=== PATIENT | female | born 1980 | race Caucasian/White ===

== ENCOUNTER 2016-10-08 16:13 | Emergency (ER) | payer OTHER ==
[2016-10-08 16:25] VITALS: BP 127/87; PULSE 79; RESP 18; TEMP 97.6
[2016-10-08] MEDS ORDERED: IBUPROFEN 800 MG TAB PO STA (16:37)
--- NOTE | 2016-10-08 16:54 | XR ---
EXAMINATION TYPE: XR wrist complete LT DATE OF EXAM: 10/08/2016 4:50 PM CLINICAL HISTORY: pain TECHNIQUE: Frontal, lateral and oblique images of the left wrist are obtained. COMPARISON: None. FINDINGS: There is no acute fracture/dislocation evident. The joint spaces appear within normal combs its. The overlying soft tissue appears unremarkable. IMPRESSION: There is no acute fracture or dislocation seen. ICD 10 NO FRACTURE, INITIAL EVALUATION
--- NOTE | 2016-10-08 16:55 | XR ---
EXAMINATION TYPE: XR forearm LT DATE OF EXAM: 10/08/2016 4:52 PM CLINICAL HISTORY: pain TECHNIQUE: Frontal and lateral images of the left forearm are obtained. COMPARISON: None. FINDINGS: There is no acute fracture/dislocation evident. Fixation plate distal ulna is in place. Th e joint spaces appear within normal limits. The overlying soft tissue appears unremarkable. IMPRESSION: There is no acute fracture or dislocation. ICD 10 NO FRACTURE, INITIAL EVALUATION
--- NOTE | 2016-10-08 17:10 | ED ---
Lower Extremity Injury HPI - General Chief Complaint: Extremity Injury, Upper Stated Complaint: Left Wrist Injury Time Seen by Provider: 10/08/16 16:27 Source: patient Mode of arrival: ambulatory Limitations: no limitations - Related Data Home Medications Medication Instructions Recorded Confirmed D-Methorphan/PE/Acetaminophen 1 tab PO Q6H PRN 10/08/16 10/08/16 [Tylenol Cold Multi-Symp Caplet] Multivitamins, Thera [Multivitamin] 1 tab PO DAILY 10/08/16 10/08/16 Allergies Allergy/AdvReac Type Severity Reaction Status Date / Time No Known Allergies Allergy Verified 10/08/16 16:31 Review of Systems ROS Statement: Those systems with pertinent positive or pertinent negative responses have been documented in the HPI. ROS Other: All systems not noted in ROS Statement are negative. Past Medical History Past Medical History: No Reported History History of Any Multi-Drug Resistant Organisms: None Reported Past Surgical History: Orthopedic Surgery Additional Past Surgical History / Comment(s): ORIF of the left arm Past Psychological History: No Psychological Hx Reported Smoking Status: Never smoker Past Alcohol Use History: None Reported Past Drug Use History: None Reported General Exam Limitations: no limitations Course Vital Signs 10/08/16 16:21 Temperature 97.6 F Pulse Rate 79 Respiratory 18 Rate Blood Pressure 127/87 O2 Sat by Pulse 99 Oximetry Medical Decision Making - Radiology Data Radiology results: report reviewed X-ray left wrist: No acute fracture or dislocation seen. Joint spaces appear within normal limits. Overlying soft tissue appears unremarkable. X-ray left forearm: No acute fracture or dislocation. Fixation plate distal ulna is in place. Joint spaces appear within normal limits. Overlying soft tissue appears unremarkable. Disposition Clinical Impression: Sprain of left wrist Disposition: HOME SELF-CARE Condition: Good Instructions: Wrist Injury (ED) Additional Instructions: Avoid activities that cause pain. Apply ice 20 minutes 4 times a day usually 2- 3 days. Keep arm elevated as much as possible for 24-48 hours. Continue Motrin 800 mg 3 times a day for 24-48 hours. Follow-up with orthopedic surgeon as directed. Please return to the emergency department if symptoms do not improve or get worse. Referrals: None,Stated [Primary Care Provider] - 1-2 days Ronn Cortes DO [Doctor of Osteopathic Medicine] - 1-2 days Time of Disposition: 17:10
--- NOTE | 2016-10-08 17:19 | ED ---
Upper Extremity HPI - General Chief Complaint: Extremity Injury, Upper Stated Complaint: Left Wrist Injury Time Seen by Provider: 10/08/16 16:27 Source: patient Mode of arrival: ambulatory Limitations: no limitations - History of Present Illness Initial Comments: Patient is a 35-year-old white female presenting to the emergency department with complaints of left wrist injury onset approximately one hour prior to arrival. Patient states she was doing around off in gymnastics when she injured her left wrist. Patient is currently complaining of pain rated 8 out of 10 described as sharp and throbbing associated with numbness and tingling going up her forearm. Patient reports previous surgery to her left ulna that was repaired with plates and screws. No treatment prior to arrival. Patient denies any other symptoms are injuries. MD Complaint: Injury to:: left, wrist Other Injuries: none Handedness: left Severity scale (1-10): 8 Improves With: immobilization Worsens With: movement of extremity Context: sports-related injury - Related Data Home Medications Medication Instructions Recorded Confirmed D-Methorphan/PE/Acetaminophen 1 tab PO Q6H PRN 10/08/16 10/08/16 [Tylenol Cold Multi-Symp Caplet] Multivitamins, Thera [Multivitamin] 1 tab PO DAILY 10/08/16 10/08/16 Allergies Allergy/AdvReac Type Severity Reaction Status Date / Time No Known Allergies Allergy Verified 10/08/16 16:31 Review of Systems ROS Statement: Those systems with pertinent positive or pertinent negative responses have been documented in the HPI. ROS Other: All systems not noted in ROS Statement are negative. Past Medical History Past Medical History: No Reported History History of Any Multi-Drug Resistant Organisms: None Reported Past Surgical History: Orthopedic Surgery Additional Past Surgical History / Comment(s): ORIF of the left arm Past Psychological History: No Psychological Hx Reported Smoking Status: Never smoker Past Alcohol Use History: None Reported Past Drug Use History: None Reported General Exam Limitations: no limitations General appearance: alert, in no apparent distress Head exam: Present: atraumatic, normocephalic, normal inspection Eye exam: Present: normal appearance ENT exam: Present: normal exam, normal oropharynx, mucous membranes moist, TM's normal bilaterally, normal external ear exam Neck exam: Present: normal inspection, full ROM Cardiovascular Exam: Present: regular rate, normal rhythm, normal heart sounds GI/Abdominal exam: Present: soft, normal bowel sounds. Absent: tenderness Left Elbow exam: Present: normal inspection, full ROM. Absent: tenderness, swelling Forearm Wrist exam: Present: tenderness, swelling. Absent: full ROM (Secondary to pain), laceration, ecchymosis, deformity, dislocation Hand Wrist exam: Present: tenderness (Tenderness and swelling to lateral left wrist), swelling. Absent: full ROM (Secondary to pain), ecchymosis, deformity, dislocation, erythema Neuro motor exam: Present: wrist extension intact, thumb opposition intact, thumb IP flexion intact, thumb adduction intact, fingers 2-5 abduction intact Neurosensory exam: Present: 2-point discrimination, radial nerve intact, ulnar nerve intact, median nerve intact Vascular: Present: normal capillary refill, radial pulse, brachial pulse, ulnar pulse. Absent: vascular compromise, pulse deficit radial art, pulse deficit ulnar art, pulse deficit brachial art Neurological exam: Present: alert, oriented X3, normal gait, other (No focal deficits) Psychiatric exam: Present: normal affect, normal mood Skin exam: Present: warm, dry, intact, normal color Course Vital Signs 10/08/16 16:21 Temperature 97.6 F Pulse Rate 79 Respiratory 18 Rate Blood Pressure 127/87 O2 Sat by Pulse 99 Oximetry Medical Decision Making - Medical Decision Making Left wrist sprain. X-ray of left forearm and wrist no evidence of dislocation or fracture. Left arm placed in a short arm OCL splint. Patient instructed to follow-up with orthopedic surgeon as directed. Return parameters discharge instructions reviewed. Patient agrees with treatment plan. - Radiology Data Radiology results: report reviewed Left forearm x-ray: No acute fracture or dislocation evident. Fixation plate distal ulna is in place. The joint spaces appear within normal limits. The overlying soft tissue appears unremarkable. Left wrist x-ray: No acute fracture or dislocation evident. Joint spaces appear within normal limits. Overlying soft tissue appears unremarkable. Disposition Clinical Impression: Sprain of left wrist Disposition: HOME SELF-CARE Condition: Good Instructions: Wrist Injury (ED) Additional Instructions: Avoid activities that cause pain. Apply ice 20 minutes 4 times a day usually 2- 3 days. Keep arm elevated as much as possible for 24-48 hours. Continue Motrin 800 mg 3 times a day for 24-48 hours. Follow-up with orthopedic surgeon as directed. Please return to the emergency department if symptoms do not improve or get worse. Referrals: Ronn Cortes, [Doctor of Osteopathic Medicine] - 1-2 days None,Stated [Primary Care Provider] - 1-2 days
== END 2016-10-08 17:22 | disposition home or self-care (01) ==
LOC: EC 16:13
DX: S63.502A Unspecified sprain of left wrist, initial encounter (principal); Y93.43 Activity, gymnastics
CPT/HCPCS: 29125; 99283